=== PATIENT | female | born 1955 | race African-American/Black ===

== ENCOUNTER 2018-03-07 23:43 | Emergency (ER) | payer BC ==
[~2018-03-07] VITALS: Ht 160 cm; Wt 129.0 kg
[~2018-03-07 23:43] MED LIST: ASPI-825 PO; FERR1TAB24 PO; GLYB5TAB8 PO; HYDR25TA PO; METF-444 PO; VALS160T2 PO; [UNRECOGNIZED DRUG - REMARK]
[2018-03-08 00:22] VITALS: BP 140/90
[2018-03-08] MEDS ORDERED: CARV25 PO (00:32)
[2018-03-08] MEDS ORDERED: CHLO25TA3 PO (00:32)
[2018-03-08] MEDS ORDERED: SIMV-261 PO (00:32)
[2018-03-08] MEDS ORDERED: LOSA50TA25 PO (00:32)
[2018-03-08 01:17] LABS: BASOPHILS % (AUTO) 0.7 % (0.0-2.0); EOSINOPHILS % (AUTO) 4.5 % (1.0-6.0); HEMOGLOBIN 12.2 g/dL (12.0-16.0); LYMPHOCYTES # (AUTO) 3.6 K/uL (1.0-4.8); LYMPHOCYTES % (AUTO) 42.4 % (22.0-44.0); MEAN CORPUSCULAR HEMOGLOBIN 22.9 pg (26.0-34.0); MEAN CORPUSCULAR HGB CONC 30.5 G/dL (31.0-37.0); MEAN CORPUSCULAR VOLUME 75 fL (80-100); MONOCYTES # (AUTO) 0.5 K/uL (0.1-1.0); MONOCYTES % (AUTO) 6.4 % (2.0-9.0); NEUTROPHILS # (AUTO) 3.9 K/uL (1.8-7.7); PLATELET COUNT (AUTO) 282 K/uL (150-450); RED CELL DISTRIBUTION WIDTH 15.5 % (11.5-14.5)
[2018-03-08 01:25] LABS: ANION GAP 5 mmol/L (8-16); CALCIUM, TOTAL 9.2 mg/dL (8.8-10.5); CARBON DIOXIDE 34 mmol/L (22-29); CHLORIDE 101 mmol/L (98-107); CREATININE 0.91 mg/dL (0.60-1.30); GLOMERULAR FILTR. RATE CALC > 60 mL/min (>60); GLUCOSE,RANDOM 136 mg/dL (70-110); SODIUM SERUM 140 mmol/L (136-145); UREA NITROGEN, BLOOD 19 mg/dL (7-18)
[2018-03-08 01:31] LABS: ALANINE AMINOTRANSFERASE 18 U/L (12-78); ALKALINE PHOSPHATASE 105 U/L (46-116); ASPARTATE AMINOTRANSFERASE 9 U/L (15-37); BILIRUBIN,TOTAL 0.3 mg/dL (0.1-1.0); TOTAL PROTEIN, SERUM 8.2 g/dL (6.4-8.2)
[2018-03-08 01:32] LABS: HEMATOCRIT 38.9 % (36-46)
[2018-03-08 01:50] LABS: B-TYPE NATRIURETIC PEPTIDE 13 pg/mL (0-100)
[2018-03-08 11:31] LABS: GLUCOSE,POINT OF CARE 141 MG/DL (70-110)
== END 2018-03-08 02:25 | disposition left against medical advice (07) ==
LOC: EMS 23:43
DX: R06.02 Shortness of breath (principal); Z53.21 Procedure and treatment not carried out due to patient leaving prior to being seen by health care provider
CPT/HCPCS: 93005; 99281

== ENCOUNTER 2024-10-23 10:00 | Emergency (ER) | payer MEDICARE, BC ==
[~2024-10-23] VITALS: Ht 154.9 cm; Wt 96.8 kg
[~2024-10-23 10:00] MED LIST changes: +CARV25 PO; +CHLO25TA3 PO; -FERR1TAB24 PO; -HYDR25TA PO; +LOSA-382 PO; +SIMV-261 PO; -[UNRECOGNIZED DRUG - REMARK]
[2024-10-23 10:07] VITALS: TEMP 97.7
[2024-10-23 11:05] VITALS: BP 114/70; PULSE 72; RESP 18; O2SAT 95
[2024-10-23 11:26] LABS: GLUCOMETER DEV NAME(LOC) ERT.7; GLUCOSE,POINT OF CARE 98 MG/DL (70-110)
== END 2024-10-23 11:54 | disposition home or self-care (01) ==
LOC: EMS 10:03
DX: T38.3X1A Poisoning by insulin and oral hypoglycemic [antidiabetic] drugs, accidental (unintentional), initial encounter (principal); E11.9 Type 2 diabetes mellitus without complications; I10 Essential (primary) hypertension; J44.89 Other specified chronic obstructive pulmonary disease; Z79.899 Other long term (current) drug therapy; Z79.82 Long term (current) use of aspirin; Z86.718 Personal history of other venous thrombosis and embolism; Z79.84 Long term (current) use of oral hypoglycemic drugs; Z98.890 Other specified postprocedural states
CPT/HCPCS: 82948; 82962; 99283

== ENCOUNTER 2025-01-21 14:41 | Emergency (ER) | payer MEDICARE, BC ==
[~2025-01-21] VITALS: Ht 154.9 cm; Wt 96.0 kg
[2025-01-21 15:00] VITALS: BP 113/67; PULSE 66; RESP 18; TEMP 97.9; O2SAT 97
[2025-01-21 15:20] LABS: GLUCOMETER DEV NAME(LOC) ER.7; GLUCOSE,POINT OF CARE 100 MG/DL (70-110)
== END 2025-01-21 16:46 | disposition home or self-care (01) ==
LOC: EMS 14:48
DX: M79.671 Pain in right foot (principal); M79.672 Pain in left foot; E11.9 Type 2 diabetes mellitus without complications; I10 Essential (primary) hypertension; J44.89 Other specified chronic obstructive pulmonary disease; Z98.890 Other specified postprocedural states; Z86.718 Personal history of other venous thrombosis and embolism; Z79.82 Long term (current) use of aspirin; Z79.899 Other long term (current) drug therapy
CPT/HCPCS: 82962; 99282